=== PATIENT | male | born 1995 | race Hispanic/Latino ===

== ENCOUNTER 2017-03-02 17:36 | Day surgery (SDC) | payer SELFPAY ==
[2017-03-02] MEDS ORDERED: HYDROcodone/Acetaminophen 10/325 mg Tablet ONE (18:03)
[2017-03-02] MEDS ORDERED: Adacel (T-DAP) 0.5 ML VIAL ONE (18:03)
[2017-03-02] MEDS ORDERED: ceFAZolin Sodium 1 GM VIAL ONE (18:52)
--- NOTE | 2017-03-02 18:53 | RAD ---
RIGHT MIDDLE FINGER TWO VIEWS: 03/02/17 HISTORY: Crush injury and pain in the right middle finger. FINDINGS/IMPRESSION: No acute fracture or dislocation seen. Soft tissue swelling and laceration is seen in the distal vol ar aspect of the right middle finger. Punctuate densities may represent foreign bodies. POS: H
[2017-03-02 18:55] LABS: #Eosinphils 0.1 thou/uL (0.0-0.7); #Lymphocytes 2.6 thou/uL (1.20-3.40); #Monocytes 0.5 thou/uL (0.11-0.59); #Neutrophils 4.8 thou/uL (1.40-6.50); %Basophils 0.5 % (0.0-1.0); %Eosinophils 1.7 % (0.0-10.0); %Monocytes 6.4 % (0.0-4.0); Mean Platelet Volume 9.9 fL (7.4-10.4); Red Blood Cell (RBC) Count 5.02 mill/uL (4.00-5.20); White Blood Cell (WBC) Count 8.1 thou/uL (4.8-10.8)
[2017-03-02 19:15] LABS: Anion Gap 13 mmol/L (10-20); BUN (Urea Nitrogen) 22 mg/dL (8.4-21.0); Calc. Creatinine Clearance 0 mL/min (70-130); Calcium 9.4 mg/dL (7.8-10.44); Carbon Dioxide 23 mmol/L (22-29); Chloride 105 mmol/L (98-107); Estimated GFR-MDRD Greater than 90
[2017-03-02] MEDS ORDERED: Sodium Chloride 0.9% 10 ML ONE (19:15)
[2017-03-02] MEDS ORDERED: Fentanyl 100 MCG/2 ML VIAL ONE ×3 (19:45→21:19)
[2017-03-02] MEDS ORDERED: Midazolam HCl 2 mg/2 ml Vial ONE (19:51)
[2017-03-02] MEDS ORDERED: Bupivacaine 0.5% 10 ML VIAL ONE (19:57)
[2017-03-02] MEDS ORDERED: Bupivacaine 0.25% HCL 30 ML VIAL ONE (19:57)
[2017-03-02] MEDS ORDERED: Bacitracin Zinc 1 Packet ONE (19:57)
[2017-03-02] MEDS ORDERED: Sodium Chloride 0.9% 30 ML ONE (19:57)
[2017-03-02] MEDS ORDERED: Bacitracin Zinc Ointment 30 gm TUBE ONE (20:07)
[2017-03-02] MEDS ORDERED: Bupivacaine PF 0.5% 30 ML VIAL ONE (20:07)
[2017-03-02] MEDS ORDERED: Lidocaine 2% PF 10 ML AMP (For Epidural Use) ONE (20:08)
[2017-03-02] MEDS ORDERED: Propofol 200 MG/20 ML VIAL ONE (20:08)
[2017-03-02] MEDS ORDERED: Ketorolac Tromethamine 30 MG/ML VIAL ONE ×2 (20:08→21:21)
[2017-03-02] MEDS ORDERED: Succinylcholine Chloride 20 MG/ML 10 ml SYRINGE FS ONE (20:08)
--- NOTE | 2017-03-03 07:07 | OP ---
DATE OF SURGERY AND DICTATION: 03/02/2017 PREOPERATIVE DIAGNOSIS: Left long finger complex wound with a large flap of tissue and over 3 cm la ceration, all confined to the distal phalanx. POSTOPERATIVE DIAGNOSIS: Left long finger complex wound with a large flap of tissue and over 3 cm l aceration, all confined to the distal phalanx. FINDINGS: 1. Open wound with exposed bone, tendon, and arterial branches. 2. Flap of skin approximately 5 mm wide x 9 mm width, intact circulation but not as brisk as the re maining portions. 3. Nail loss. 4. Nailbed laceration 4 mm. 5. Flexor digitorum profundus longitudinal laceration at its insertion point with approximately one -third of tendon involvement. PROCEDURES PERFORMED: 1. Debridement of the open wound. 2. Debridement of the bone. 3. Partial repair, flexor digitorum profundus longitudinal laceration with heavy Prolene suture. 4. Nailbed debridement. 5. Irrigation of the wound with 3 liters of normal saline and Pulsavac pressure. The wound dressed open over 1 cm aspect of the flap from the distal third nailbed all the way to the flexor tendon ex posed region at the base of the distal phalanx. DEBRIDEMENTS USING THE FOLLOWING TECHNIQUES AND INSTRUMENTATION: A. Instrumentation: Curette, 3 mm tip; tenotomy scissors; baby rongeur; [place] blade. B. Technique: Excisional. C. Depth: Including wound all layers which would be dermis, epidermis, fat, and the exposed tip of the bone underlying the nailbed remnant. D. 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 DESCRIPTION OF PROCEDURE: After successful general endotracheal anesthesia, limb was prepped and dr darrin. A timeout was done appropriately. We identified the finger, we did not inflate the tournique t because we wanted to discern bleeding tissue, so immediately using tenotomy scissors, 2 pairs of p ickups, we were able to define the tissue layers and evaluated the flap that was approximately 9 mm long and 5 mm wide that was curved and remained at the distal tuft. We used a curette to debride th e nailbed of underlying bone, removed some crystal-like areas from it, this included the medial and lateral surface/radial and ulnar surface. Now, we have performed debridement with tenotomy scissors , [place] blade, and a curette for the bone exposed without fracture, the tendon area, fat, and subcu taneous tissues were then irrigated with 3 liters of normal saline with antibiotics inside (bacitrac in 1000 units per liter) and then what we had an excellent bleeding tissue to include all the areas proximal to the actual laceration. We then loosely applied two 5-0 sutures to hold a flap in place, one on each side of marin alanis g a 1 cm opening which could be packed and used to allow the secondary closure to occur without furt her loss of the limb. Once this irrigation was complete, we reinspected, and the flap had been done as described above. T umang, we noticed there was circulation even in the once thought to be tenuous flap, no bony instabili ty, and we debrided the nail bed edge as well. This occurred with a combination of instruments incl uding a curette, tenotomy scissors, and a [place] blade. We had a clean wound, no particles se en, we were able to place one stay suture in the flap that was the most viable on the palmar aspect even out to the level of the joint surface. There was no complication with this maneuver. Then, we also found that the flap with the laceration was intact and has the circulation. We now performed . Now, we had placed a dressing, multiple 4 x 4's, and then we used a 2 gauze spin-off to create appro priate compression and wound maintenance. The patient prepared for discharge. Will also have antib iotics and anti-inflammatory pain medicine given.
== END 2017-03-02 22:40 | disposition home or self-care (01) ==
LOC: ERS 17:36 → SDC/OP 19:02
PROVIDERS: ATTEND Orthopaedic Surgery Hand Surgery
PROC: 0PBV0ZZ Excision of Left Finger Phalanx, Open Approach (ICD-10-PCS; principal; 2017-03-02)
PROC: 0HQGXZZ Repair Left Hand Skin, External Approach (ICD-10-PCS; principal; 2017-03-02)
DX: S61.313A Laceration without foreign body of left middle finger with damage to nail, initial encounter (principal); S56.124A Laceration of flexor muscle, fascia and tendon of left middle finger at forearm level, initial encounter; W31.89XA Contact with other specified machinery, initial encounter; Y99.0 Civilian activity done for income or pay
CPT/HCPCS: 36415; 80048; 85025; 90471; 90715; 96372; 96374; 96375; A4216; J0690; J1885; J2001; J2250; J2704; J3010; J3370; J3490; S0020